=== PATIENT | female | born 1985 | race Caucasian/White ===

== ENCOUNTER → 2020-05-27 16:50 | Outpatient (CLI) | payer BC, SELFPAY ==
[2020-05-31 17:39] LABS: COVID19 Sendout Not Detected (Not Detected)
== END ==
PROVIDERS: Visit Provider Physician Assistant
DX: Z11.59 Encounter for screening for other viral diseases (principal); J02.9 Acute pharyngitis, unspecified
CPT/HCPCS: 87070; 87635

== ENCOUNTER → 2020-09-03 11:01 | Outpatient (CLI) | payer BC, SELFPAY ==
--- NOTE | 2020-09-03 11:02 | DI.US.S_ITS ---
PROCEDURE: US PELVIC COMPLETE INDICATIONS: menorrhagia, dysmenorrhea TECHNIQUE: Real-time scanning was performed of the pelvic organs, with image documentation. Additional endovaginal scanning was necessary due to incomplete visualization of the adnexal and endometrial structures by transabdominal scanning. COMPARISON: None. FINDINGS: Transabdominal scanning: Limited scanning through the kidneys shows no hydronephrosis. No pathologic free abdominal or pelvic fluid. Endovaginal scanning: Uterus: Uterus is retroverted and normal in size at 8.2 x 4.5 x 4.1 cm. No uterine mass. Myometrium is somewhat heterogeneous. The endometrium measures 5 mm in combined thickness. Ovaries: Within normal limits. Blood flow seen in both ovaries. Right ovary measures 3.4 x 2.2 x 1.5 cm. Left ovary measures 4.2 x 2.8 x 2.4 cm. Left ovarian crenulated appearing hemorrhagic cyst measuring 2.1 x 1.6 x 1.3 cm. No internal vascularity. Trace fluid adjacent to the left adnexa. IMPRESSION: 1. Endometrial thickness measures 5 mm. 2. No uterine mass. 3. Myometrium appears somewhat heterogeneous. 4. Left ovarian hemorrhagic cyst measuring 2.1 cm. Trace physiologic free fluid in the left adnexa. Dictated by: Ganga Saha M.D. on 09/03/2020 at 13:36 Approved by: Ganga Saha M.D. on 09/03/2020 at 13:42
== END ==
PROVIDERS: PCP Registered Nurse Diabetes Educator; Referring Provider Registered Nurse Diabetes Educator; Visit Provider Registered Nurse Diabetes Educator
DX: N92.0 Excessive and frequent menstruation with regular cycle (principal); N94.6 Dysmenorrhea, unspecified; N83.202 Unspecified ovarian cyst, left side
CPT/HCPCS: 36415; 76830; 76856; 80053; 80061; 84443; 85027

== ENCOUNTER → 2021-09-24 08:57 | Outpatient (CLI) | payer BC, SELFPAY ==
[2021-09-24 09:49] LABS: Hematocrit 37.8 % (36-46); Mean Corpuscular HGB Conc 34.3 % (30-36); Mean Corpuscular Hemoglobin 31.6 PG (26-34); Mean Corpuscular Volume 92.1 fL (80-100); Platelet Count 237 X10^3/uL (150-400); Red Blood Cell Count 4.11 X10^6/uL (4.0-5.2); Red Cell Distribution Width 12.3 % (11.6-14.8); White Blood Cell Count 5.2 X10^3/uL (4.5-11.0)
[2021-09-24 10:14] LABS: Alanine Aminotransferase 19 IU/L (<35); Albumin 4.2 g/dL (3.5-5.0); Albumin Globulin Ratio 1.2 (1.0-2.8); Alkaline Phosphatase 33 U/L (38-126); Aspartate Aminotransferase 36 IU/L (14-36); BUN Creatinine Ratio 23.9 (6-22); Bilirubin Total 0.7 mg/dL (0.2-1.3); Blood Urea Nitrogen 17 mg/dL (7-17); Calcium 9.5 mg/dL (8.4-10.2); Carbon Dioxide 28 mmol/L (22-32); Chloride 102 mmol/L (98-107); Cholesterol 208 mg/dL (140-199); Estimated Glomerular Filt Rate > 60.0 mL/min (>60); Globulin 3.5 g/dL (1.7-4.1); Glucose 96 mg/dL (70-100); HDL Cholesterol 75 mg/dL (40-60); LDL Cholesterol Calculated 111 mg/dL (<100); Potassium 4.2 mmol/L (3.4-5.1); Sodium 135 mmol/L (137-145); Total Protein 7.7 g/dL (6.3-8.2); Triglycerides 108 mg/dL (35-150)
[2021-09-24 10:18] LABS: HEMOLYSIS 78 (0-50)
[2021-09-24 12:36] LABS: TSH w/ Reflex to FT4 1.63 uIU/mL (0.47-4.68)
== END ==
PROVIDERS: PCP Registered Nurse Diabetes Educator; Referring Provider Registered Nurse Diabetes Educator; Visit Provider Registered Nurse Diabetes Educator
DX: E78.5 Hyperlipidemia, unspecified (principal); R63.5 Abnormal weight gain
CPT/HCPCS: 36415; 80053; 80061; 84443; 85027

== ENCOUNTER → 2021-10-03 11:15 | Outpatient (CLI) | payer BC, SELFPAY ==
[2021-10-03 13:57] LABS: COVID19 -Nasal RAPID Negative (Negative)
== END ==
PROVIDERS: PCP Registered Nurse Diabetes Educator; Visit Provider Nurse Practitioner Family
DX: Z20.822 Contact with and (suspected) exposure to COVID-19 (principal); J02.9 Acute pharyngitis, unspecified; R09.89 Other specified symptoms and signs involving the circulatory and respiratory systems
CPT/HCPCS: 87070; 87077; 87147; 87635

== ENCOUNTER → 2021-12-16 07:53 | Outpatient (CLI) | payer BC, SELFPAY ==
[2021-12-16 09:02] LABS: Follicle Stimulating Hormone 2.12 mIU/mL
[2021-12-16 09:06] LABS: HCG Quantitative /Beta subunit < 2.4 mIU/mL; Prolactin 29.9 ng/mL (3.0-18.6)
[2021-12-16 09:19] LABS: Thyroid Stimulating Hormone 1.73 uIU/mL (0.47-4.68)
[2021-12-17 08:52] LABS: Dehydroepiandrosterone Sulfate 65.8 ug/dL (57.3-279.2)
[2021-12-22 10:00] LABS: Percent Free Testosterone 0.97 % (0.50-2.80); Testosterone Free 0.19 ng/dL (0.10-0.85)
== END ==
PROVIDERS: PCP Registered Nurse Diabetes Educator; Referring Provider Obstetrics & Gynecology; Visit Provider Obstetrics & Gynecology
DX: L68.0 Hirsutism (principal); N92.1 Excessive and frequent menstruation with irregular cycle
CPT/HCPCS: 36415; 82627; 83001; 83498; 84146; 84402; 84403; 84443; 84702

== ENCOUNTER → 2021-12-20 09:31 | Outpatient (CLI) | payer BC, SELFPAY ==
--- NOTE | 2021-12-20 09:32 | DI.US.S_ITS ---
PROCEDURE: US PELVIC COMPLETE INDICATIONS: dysmenorrhea TECHNIQUE: Real-time scanning was performed of the pelvic organs, with image documentation. Additional endovaginal scanning was necessary due to incomplete visualization of the adnexal and endometrial structures by transabdominal scanning. COMPARISON: [facility], CR, XR PELVIS WITH LATERAL HIP LEFT, 11/01/2020, 11:23. [facility], US, US PELVIC COMPLETE, 04/15/2021, 14:54. FINDINGS: Uterus: Uterus is anteverted and normal in size at 7 x 4.3 x 4.1 cm. The myometrium is heterogeneous. The endometrial stripe is not well seen. There is a trace amount anechoic fluid seen along the cervical canal. Ovaries: The right ovary measures 3.1 x 2.6 x 1.1 cm. The left ovary measures 2.2 x 1.8 x 1.2 cm. The ovaries have a normal sonographic appearance. No adnexal masses are seen. Other: There is a [id number] amount of anechoic fluid seen within the pelvic cul-de-sac. IMPRESSION: A mild amount of simple appearing fluid is seen within the pelvic cul-de-sac. No imaging explanation is found for this patient's presenting symptoms. To The endometrial stripe is not well seen. We strive to produce accurate, complete, and clear reports of imaging services. To assist us in improving patient care, this report was composed using standard report templates and voice recognition software. Therefore, it may contain abnormal punctuation, insertions and/or omissions. Occasional wrong-word or sound-alike substitutions may occur. Though we review the report and make efforts to correct it, we do recommend that the report be read carefully in proper context to recognize any text inaccuracies. Dictated by: Luis Kaplan M.D. on 12/20/2021 at 9:13 Approved by: Luis Kaplan M.D. on 12/20/2021 at 9:15
== END ==
PROVIDERS: PCP Registered Nurse Diabetes Educator; Referring Provider Obstetrics & Gynecology; Visit Provider Obstetrics & Gynecology
DX: N94.6 Dysmenorrhea, unspecified (principal); L68.0 Hirsutism; N92.1 Excessive and frequent menstruation with irregular cycle
CPT/HCPCS: 76830; 76856

== ENCOUNTER → 2022-03-22 17:50 | Outpatient (CLI) | payer BC, SELFPAY | PROVIDERS: PCP Registered Nurse Diabetes Educator; Visit Provider Nurse Practitioner Family | DX: J02.9 Acute pharyngitis, unspecified (principal) | CPT/HCPCS: 87070 ==

== ENCOUNTER → 2022-12-15 13:47 | Outpatient (CLI) | payer BC, SELFPAY ==
--- NOTE | 2022-12-15 13:48 | DI.US.S_ITS ---
PROCEDURE: US PELVIC COMPLETE INDICATIONS: Abnormal uterine and vaginal bleeding, unspecified TECHNIQUE: Real-time scanning was performed of the pelvic organs, with image documentation. Additional endovaginal scanning was necessary due to incomplete visualization of the adnexal and endometrial structures by transabdominal scanning. COMPARISON: [facility], US, US PELVIC COMPLETE, 12/20/2021, 9:40. FINDINGS: Uterus: Uterus is retroverted and normal in size at 6.5 x 3.4 x 4.6 cm. The myometrium is heterogeneous, no discrete uterine fibroid is seen. The endometrium measures 3 mm combined thickness. No endometrial mass or fluid is noted. Ovaries: The right ovary measures 3.3 x 1.5 x 2 cm, with a calculated ovarian volume of 5.1 cc. The left ovary measures 3.3 x 1.4 x 1.9 cm, with a calculated ovarian volume of 4.6 cc. The ovaries have a normal sonographic appearance. Less than 12 follicles can be seen in each ovary. No adnexal masses are seen. Other: Physiologic amount of fluid is noted in posterior cul-de-sac and adjacent to bilateral ovaries. IMPRESSION: Physiologic amount of fluid in posterior cul-de-sac and adjacent to bilateral ovaries. Normal appearing uterus and bilateral ovaries. We strive to produce accurate, complete, and clear reports of imaging services. To assist us in improving patient care, this report was composed using standard report templates and voice recognition software. Therefore, it may contain abnormal punctuation, insertions and/or omissions. Occasional wrong-word or sound-alike substitutions may occur. Though we review the report and make efforts to correct it, we do recommend that the report be read carefully in proper context to recognize any text inaccuracies. Dictated by: David Uribe M.D. on 12/15/2022 at 15:34 Approved by: David Uribe M.D. on 12/15/2022 at 15:43
== END ==
PROVIDERS: PCP Registered Nurse Diabetes Educator; Referring Provider Registered Nurse Diabetes Educator; Visit Provider Registered Nurse Diabetes Educator
DX: N93.9 Abnormal uterine and vaginal bleeding, unspecified (principal)
CPT/HCPCS: 76830; 76856

== ENCOUNTER 2023-04-13 08:04 | Day surgery (SDC) | payer BC, SELFPAY ==
[2023-04-05 12:27] VITALS: BMI 26.5
[2023-04-13] VITALS (7 sets, daily range): BP systolic 99–112; BP diastolic 62–72; PULSE 70–96; RESP 12–16; TEMP 36.1–36.6; O2SAT 98–100; BMI 25.6
--- NOTE | 2023-04-13 | PATH_ITS ---
[facility] Accession Number: [id number] No. of containers..01 Tissue . 01 Material submitted: . endometrium - ENDOMETRIAL CURETTINGS . 01 Diagnosis: Endometrial Curettings: Portions of shedding endometrium; negative for significant atypia. Avulsed squames with reactive features. [facility] 04/19/2023 1417 Local . 01 Electronically signed: . iDana Sebastian MD, Pathologist NPI- [id number] . 01 Gross description: . ENDOMETRIAL CURETTINGS: Received in formalin are minute fragments of mucoid and hemorrhagic material measuring 0.7 x 0.7 x 0.3 cm in aggregate. Submitted in toto in 1 cassette. /MICHAELA 04/16/2023 1909 Local . 01 Pathologist provided ICD-10: N85.00 . 01 CPT . 989091 Specimen Comment: A courtesy copy of this report has been sent to [phone] Performed at: 01 [facility] [address] [place] [address] [address], [place], [place] [id number] MD Harshil Alfonso MD Phone: [phone]
[2023-04-13] MEDS: LACTATED RINGERS 1,000 ML 42 ML IV (08:29)
[2023-04-13] MEDS: SCOPOLAMINE 1 PATCH TOP (09:00)
--- NOTE | 2023-04-13 09:01 | PM.PREOP ---
Pre-operative Note COVID-19 COVID-19 status: Not tested Criteria for continued procedure: Non-surgical alternatives not available or appropriate per current SOC Interval Note History & Physical reviewed/Exam performed by Physician: Yes Changes to H&P: No
--- NOTE | 2023-04-13 09:29 | SUR.OPER ---
Lithotomy on padded OR bed, head on pillow, arms secured on padded arm boards at <90 degrees abduction. Legs secured in padded yellow fins stirrups.
[2023-04-13] MEDS: SILVER NITRATE STICK 1 EACH TOP (09:48)
--- NOTE | 2023-04-13 09:54 | P.OP_ITS ---
Operative Date/Time/Diagnoses Date of procedure: 04/13/23 Time of procedure: 09:15 Pre-op diagnosis: Menometrorrhagia Post-op diagnosis: same Procedure & Clinicians Procedure: Procedures Operation Date: 04/13/23 09:15 Actual Procedure Side Surgeon p Hysteroscopy w/ poss. BX'S, D&C of the uterus, Endometrial Ablation (novasure) Parveen Allen MD Indications: Shannon returned after being started on continuous oral contraceptives (Janina) in December 2022.? She initially did well and did not have any breakthrough bleeding but in February she began having spotting and bleeding in between her periods along with headaches and dizziness.? She was apparently advised to stop her control pills which she is done and is bleeding actively. Since stopping her OCs 5 days ago, her headaches have worsened and her dizziness has improved slightly.? She wants to explore next options.? She and Dr. Olivia Toro had discussed endometrial ablation in the past and she is had an endometrial biopsy by Dr. Toro which was unremarkable.? Or pelvic ultrasound does show that the myometrium is heterogenous raising the possibility of adenomyosis.? Contraception is by vasectomy. Potential options for next steps reviewed at length with the patient and she would like to proceed with endometrial ablation.? Patient advised that if she does have adenomyosis however risk of failure for the endometrial ablation would be higher.? With that understanding however she wishes to proceed and a surgical packet was submitted to her paper goods machine set up operator to initiate the scheduling process.? Once the ablation is completed, patient can hopefully resume continuous low-dose control pills to stabilize her moods without stirring up uterine bleeding. She presents today for her scheduled surgery. Surgeon: Parveen Allen Anesthesia Type: General Operative Notes Findings: A normal endometrial cavity with no localized abnormalities noted. Both tubal ostia were clearly visualized. Closure Type: not applicable Specimen(s): endometrial curettings Estimated blood loss (mL): 5 Blood products transfused: none Procedure in detail: With the patient under general LMA in the modified dorsal lithotomy position, the perineum, vagina, and lower abdomen were prepped and draped in the usual fashion for hysteroscopy with endometrial ablation. A pre-surgical safety time- out was then taken in accordance with [facility] OR protocols. A bivalve speculum was inserted in the vagina and the cervix visualized. The anterior lip of the cervix was grasped with a single-tooth tenaculum and the endocervical canal was then dilated to 6 mm diameter. Hysteroscope was placed through the endocervical canal into the endometrial cavity and the cavity was visualized. There were no localized abnormalities within the endometrial cavity and the endometrium itself was unremarkable. Both tubal ostia were visualized. The hysteroscope was then withdrawn and curettage was accomplished with specimen submitted for the endometrial curettings. The uterine cavity was then sounded with the NovaSure device and found to be 5.5 cm in depth. The NovaSure device was then inserted through the endocervical canal into the endometrial cavity and the width of the cavity determined to be 3.0 cm. Cavity integrity test demonstrated the cavity to be intact and ablation was initiated. Ablation time was 49 seconds with power utilized 91 w. The NovaSure device was then removed from the endometrial cavity and hysteroscopy demonstrated excellent ablation effect. The tenaculum was then removed from the anterior lip of the cervix and no bleeding was encountered. The speculum was then removed from the vagina and the patient awakened from anesthesia. She was then transferred to the PACU for a period of observation and recovery having tolerated the procedure well. Complications: none Post-operative Condition: stable Disposition: PACU Plan for aftercare: Routine post-op care.
[2023-04-13] MEDS: ONDANSETRON 4 MG ODT 8 MG SL (10:51)
== END 2023-04-13 11:05 | disposition home or self-care (01) ==
PROVIDERS: PCP Registered Nurse Diabetes Educator; Referring Provider Obstetrics & Gynecology; Visit Provider Obstetrics & Gynecology
PROC: 0U5B8ZZ Destruction of Endometrium, Via Natural or Artificial Opening Endoscopic (ICD-10-PCS; CPT 58563; principal; 2023-04-13 09:15)
DX: N92.1 Excessive and frequent menstruation with irregular cycle (principal)
CPT/HCPCS: 58563; J1100; J1170; J1885; J2405; J2704